=== PATIENT | male | born 1995 | race Caucasian/White ===

== ENCOUNTER 2018-10-12 21:03 | Emergency (ER) | payer OTHER ==
[~2018-10-12] VITALS: Ht 175.3 cm; Wt 65.9 kg
[2018-10-12 21:17] VITALS: BP 118/711; TEMP 99
[2018-10-12] MEDS ORDERED: DEXMETHYLPHENID10 MG PO (22:52)
[2018-10-12] MEDS ORDERED: ZOLOFT 50MG50 MG PO (22:52)
[2018-10-12] MEDS ORDERED: BIKTARVY 50-201 EACH PO (22:52)
[2018-10-12 23:14] VITALS: PULSE 90
== END 2018-10-12 23:14 | disposition home or self-care (01) ==
LOC: COL.ER 21:03
DX: J02.9 Acute pharyngitis, unspecified (principal); J35.01 Chronic tonsillitis; B95.4 Other streptococcus as the cause of diseases classified elsewhere; F90.9 Attention-deficit hyperactivity disorder, unspecified type; F41.9 Anxiety disorder, unspecified; F32.9 Major depressive disorder, single episode, unspecified; Z21 Asymptomatic human immunodeficiency virus [HIV] infection status
CPT/HCPCS: J0561; J1100

== ENCOUNTER 2018-10-14 06:45 | Emergency (ER) | payer OTHER ==
[~2018-10-14] VITALS: Ht 175.3 cm; Wt 65.9 kg
[~2018-10-14 06:45] MED LIST: BIKTARVY 50-201 EACH PO; DEXMETHYLPHENID10 MG PO; ZOLOFT 50MG50 MG PO
[2018-10-14 06:49] VITALS: BP 135/76; TEMP 99.5
[2018-10-14 08:01] LABS: BASO % 0.2 % (0.0-2.0); EOS # 0.1 (0.0-0.7); EOS % 0.7 % (0-4.0); GRAN # 6.3 (1.4-6.5); GRAN % 76.3 % (42.2-75.2); HEMOGLOBIN 12.2 g/dl (13.5-18.0); LYMPH # 1.2 (1.2-3.4); LYMPH % 14.8 % (20.0-51.0); MEAN CELL VOLUME 86 fl (80.0-100.0); MEAN CORPUSCULAR HEMOGLOBIN 29 pg (27.0-31.0); MEAN CORPUSCULAR HGB CONC 34 g/dl (33.0-37.0); MEAN PLATELET VOLUME 11.7 fl (7.4-10.4); MONO # 0.6 (0.1-0.6); MONO % 7.8 % (1.7-9.3); PLATELET COUNT 158 K/mm3 (130-400); RED BLOOD COUNT 4.17 M/mm3 (4.20-5.60); REDCELL DISTRIBUTION WIDTH-CV 12.2 % (11.5-14.5)
[2018-10-14 08:10] LABS: ALBUMIN 3.9 gm/dL (3.5-5.0); BILIRUBIN,TOTAL 0.5 mg/dL (0.0-1.0); CREATININE, serum 0.97 mg/dL (0.66-1.25); POTASSIUM 3.5 mmol/L (3.4-5.0); TOTAL PROTEIN 7.4 gm/dL (6.4-8.2)
[2018-10-14] MEDS ORDERED: CLEOCIN HC150 MG/CAP PO (08:18)
[2018-10-14] MEDS ORDERED: PERCOCET 325 MG1 TA3 PO (08:19)
[2018-10-14 09:24] VITALS: PULSE 83
== END 2018-10-14 09:26 | disposition home or self-care (01) ==
LOC: COL.ER 06:45
PROVIDERS: Emergency Medicine
DX: J36 Peritonsillar abscess (principal); Z21 Asymptomatic human immunodeficiency virus [HIV] infection status
CPT/HCPCS: J1100; J1170; J1885; J7030

== ENCOUNTER 2019-02-06 19:30 | Observation (INO) | payer OTHER ==
[~2019-02-06] VITALS: Ht 175.3 cm; Wt 70.8 kg
[~2019-02-06 19:30] MED LIST changes: +CLEOCIN HC150 MG/CAP PO; +PERCOCET 325 MG1 TA3 PO
[2019-02-06 20:26] LABS: COLLECTION METHOD CLEAN CATCH
[2019-02-06 20:33] LABS: BASO % 0.3 % (0.0-2.0); EOS # 0.2 (0.0-0.7); EOS % 2.1 % (0-4.0); GRAN % 67.9 % (42.2-75.2); HEMATOCRIT 42.5 % (42.0-52.0); HEMOGLOBIN 14.2 g/dl (13.5-18.0); LYMPH # 2.1 (1.2-3.4); LYMPH % 23.8 % (20.0-51.0); MEAN CELL VOLUME 89 fl (80.0-100.0); MEAN CORPUSCULAR HEMOGLOBIN 30 pg (27.0-31.0); MEAN CORPUSCULAR HGB CONC 33 g/dl (33.0-37.0); MEAN PLATELET VOLUME 11.9 fl (7.4-10.4); MONO # 0.5 (0.1-0.6); MONO % 5.6 % (1.7-9.3); PLATELET COUNT 158 K/mm3 (130-400); RED BLOOD COUNT 4.77 M/mm3 (4.20-5.60); REDCELL DISTRIBUTION WIDTH-CV 12.3 % (11.5-14.5)
[2019-02-06 20:34] LABS: MUCOUS Present /lpf; PH 7 (5-8); SQUAMOUS EPITHELIAL None Seen /hpf; URINE APPEARANCE Clear; URINE BACTERIA None Seen /hpf; URINE BILIRUBIN Negative (NEGATIVE); URINE BLOOD Negative (NEGATIVE); URINE COLOR Yellow; URINE GLUCOSE Negative (NEGATIVE); URINE KETONE Negative (NEGATIVE); URINE LEUKOCYTE ESTERASE Negative (NEGATIVE); URINE NITRATE Negative (NEGATIVE); URINE PROTEIN(semi-quant) Negative (NEGATIVE); URINE RBC 0-2 /hpf; URINE UROBILINOGEN Negative (NEGATIVE)
[2019-02-06 20:43] LABS: ALANINE AMINOTRANSFERASE 13 U/L (21-72); ALBUMIN 4.2 gm/dL (3.5-5.0); ALKALINE PHOSPHATASE 51 U/L (50-136); ANION GAP 9 mmol/L (7-16); AST,SGOT 21 U/L (15-37); BILIRUBIN,TOTAL 0.3 mg/dL (0.0-1.0); BLOOD UREA NITROGEN 11 mg/dL (9-20); CARBON DIOXIDE 26 mmol/L (22-30); CHLORIDE 105 mmol/L (98-107); CREATININE, serum 0.91 (0.66-1.25); GLUCOSE 96 mg/dL (74-106); LIPASE 34 U/L (23-300); SODIUM 140 mmol/L (137-145); TOTAL PROTEIN 7.8 gm/dL (6.4-8.2)
[2019-02-06 20:44] LABS: C-REACTIVE PROTEIN < 0.5 mg/dL (0.0-0.9)
[2019-02-06] MEDS ORDERED: DEXMETHYLPHENID10 MG PO (22:23)
[2019-02-06 23:23] VITALS: BP 133/70; PULSE 51; TEMP 97.7
[2019-02-06 23:32] VITALS: BP 133/70; PULSE 53; TEMP 97.7
--- NOTE | 2019-02-07 01:07 | NUR ---
2241 - REPORT RECEIVED FROM BRITTNEY EASTMAN. 2300 - PT ARRIVED IN UNIT, ALERT AND ORIENTED X4, ON ROOM AIR. PT AMUBULATORY. PT COMPLAINS OF PAIN, PRN MED GIVEN ORDERED.
[2019-02-07 04:33] VITALS: BP 124/68; PULSE 80; TEMP 98.5
[2019-02-07 07:15] LABS: BASO % 0.3 % (0.0-2.0); EOS # 0.1 (0.0-0.7); EOS % 2.2 % (0-4.0); GRAN # 3.6 (1.4-6.5); GRAN % 59.9 % (42.2-75.2); HEMOGLOBIN 13.3 g/dl (13.5-18.0); LYMPH # 1.8 (1.2-3.4); LYMPH % 30.3 % (20.0-51.0); MEAN CELL VOLUME 90 fl (80.0-100.0); MEAN CORPUSCULAR HEMOGLOBIN 30 pg (27.0-31.0); MEAN CORPUSCULAR HGB CONC 33 g/dl (33.0-37.0); MEAN PLATELET VOLUME 12.6 fl (7.4-10.4); MONO # 0.4 (0.1-0.6); MONO % 6.8 % (1.7-9.3); PLATELET COUNT 153 K/mm3 (130-400); RED BLOOD COUNT 4.47 M/mm3 (4.20-5.60); REDCELL DISTRIBUTION WIDTH-CV 12.5 % (11.5-14.5)
--- NOTE | 2019-02-07 08:57 | NUR ---
Initial visit; Patient thanked [employer] Operator for looking in on him and wishing him well.
[2019-02-07 09:06] VITALS: BP 125/62; PULSE 56; TEMP 98.6
--- NOTE | 2019-02-07 10:45 | NUR ---
Patient is discharging home. He was able to eat breakfast without any nausea or icreased abdominal pain. Discharge instructions discussed with patient. No questions verblized. INT discontinued. Explained to follow up as needed if abdominal pain returns. Patient walked out with Concepcion WARNER.
--- NOTE | 2019-02-07 15:13 | NUR ---
SW unable to meet with patient before discharge.
== END 2019-02-07 10:45 | disposition home or self-care (01) ==
LOC: COL.ER 19:30 → SURG 22:14
PROVIDERS: Emergency Medicine; ADMIT Surgery
DX: R10.9 Unspecified abdominal pain (principal); B20 Human immunodeficiency virus [HIV] disease; F90.9 Attention-deficit hyperactivity disorder, unspecified type; Z88.5 Allergy status to narcotic agent; Z88.8 Allergy status to other drugs, medicaments and biological substances; F17.290 Nicotine dependence, other tobacco product, uncomplicated
CPT/HCPCS: G0378; J2270; J2405; J7030; Q9967

== ENCOUNTER 2020-01-15 18:36 | Emergency (ER) | payer BC, MEDICAID ==
[~2020-01-15] VITALS: Ht 175.3 cm; Wt 65.9 kg
[2020-01-15 18:42] VITALS: TEMP 98.2
[2020-01-15] MEDS ORDERED: CLEOCIN HC150 MG/CAP PO (19:34)
[2020-01-15 19:48] VITALS: BP 120/73; PULSE 80
[2020-01-15 20:04] LABS: STREP SCREEN POSITIVE
== END 2020-01-15 19:50 | disposition home or self-care (01) ==
LOC: COL.ER 18:36
PROVIDERS: Emergency Medicine
DX: J03.90 Acute tonsillitis, unspecified (principal); F17.210 Nicotine dependence, cigarettes, uncomplicated
CPT/HCPCS: J8540

== ENCOUNTER 2020-01-17 23:04 | Emergency (ER) | payer BC ==
[~2020-01-17] VITALS: Ht 175.3 cm; Wt 65.9 kg
[2020-01-17 23:12] VITALS: TEMP 98.2
[2020-01-18] MEDS ORDERED: PREDNISONE20 MG PO (00:29)
[2020-01-18 00:54] VITALS: BP 125/68; PULSE 61
== END 2020-01-18 01:00 | disposition home or self-care (01) ==
LOC: COL.ER 23:04
DX: J36 Peritonsillar abscess (principal); F90.9 Attention-deficit hyperactivity disorder, unspecified type; F17.290 Nicotine dependence, other tobacco product, uncomplicated; Z21 Asymptomatic human immunodeficiency virus [HIV] infection status
CPT/HCPCS: J2270; J2405; J7030

== ENCOUNTER 2020-03-10 05:38 | Emergency (ER) | payer BC ==
[~2020-03-10] VITALS: Ht 175.3 cm; Wt 63.6 kg
[~2020-03-10 05:38] MED LIST changes: +PREDNISONE20 MG PO
[2020-03-10 05:49] VITALS: BP 145/77; TEMP 98.5
[2020-03-10] MEDS ORDERED: ROXICODONE 55 MG/TAB PO (06:38)
[2020-03-10] MEDS ORDERED: ZOFRAN ODT4 MG PO (06:39)
[2020-03-10 07:20] VITALS: PULSE 52
== END 2020-03-10 07:20 | disposition home or self-care (01) ==
LOC: COL.ER 05:38
DX: K91.840 Postprocedural hemorrhage of a digestive system organ or structure following a digestive system procedure (principal); Z21 Asymptomatic human immunodeficiency virus [HIV] infection status; Z87.891 Personal history of nicotine dependence; Z90.81 Acquired absence of spleen